=== PATIENT | female | born 1935 | race Caucasian/White ===

== ENCOUNTER → 2018-04-09 09:14 | Outpatient (CLI) | payer MEDICARE, OTHER, SELFPAY ==
[2018-04-09 10:49] LABS: Free T3, Triiodothyronine Free 4.26 pg/mL (2.77-5.27); Free T4, Direct Thyroxine 1.46 ng/dL (0.78-2.19)
[2018-04-09 11:02] LABS: Thyroid Stimulating Hormone 0.41 uIU/mL (0.47-4.68)
== END ==
PROVIDERS: PCP Internal Medicine; Visit Provider Internal Medicine Endocrinology, Diabetes & Metabolism
DX: E03.9 Hypothyroidism, unspecified (principal); E03.8 Other specified hypothyroidism
CPT/HCPCS: 36415; 84439; 84443; 84481

== ENCOUNTER 2018-06-02 20:40 | Emergency (ER) | payer MEDICARE, OTHER, SELFPAY ==
[2018-06-02 21:14] VITALS: BP 162/69; PULSE 69; RESP 14; TEMP 36.5; O2SAT 97
--- NOTE | 2018-06-02 21:19 | PC.NURSE ---
Pt states she feels well. Aware of busy ED and going home w/ daughter. Verbalized understanding to return if any difficulty or concerns.
== END 2018-06-02 21:20 | disposition left against medical advice (07) ==
LOC: ED 21:16
PROVIDERS: Family Provider Internal Medicine; PCP Internal Medicine
DX: R22.0 Localized swelling, mass and lump, head (principal)
CPT/HCPCS: 99281

== ENCOUNTER 2018-08-21 19:50 | Emergency (ER) | payer MEDICARE, OTHER, SELFPAY ==
[2018-08-21 19:56] VITALS: BP 202/80; PULSE 80; RESP 17; O2SAT 99
[2018-08-21] MEDS: SODIUM CHLORIDE 0.9% 1,000 ML 1000 ML IV (20:29)
[2018-08-21 20:47] LABS: Add Manual Diff / Slide Review NO; Eosinophils Percent Auto 2.9 % (2-4); Hematocrit 29.4 % (36-46); Hemoglobin 9.9 g/dL (12.0-16.0); Lymphocytes Percent Auto 19.6 % (25-40); Mean Corpuscular HGB Conc 33.7 % (30-36); Mean Corpuscular Hemoglobin 29.7 PG (26-34); Mean Corpuscular Volume 88.1 fL (80-100); Monocytes Percent Auto 6.5 % (3-14); Neutrophils Absolute Auto 5300 /uL (3000-5900); Platelet Count 238 X10^3/uL (150-400); Red Blood Cell Count 3.33 X10^6/uL (4.0-5.2); Red Cell Distribution Width 14.6 % (11.6-14.8); White Blood Cell Count 7.6 X10^3/uL (4.5-11.0)
--- NOTE | 2018-08-21 20:52 | DI.CT.S_ITS ---
PROCEDURE: CT HEAD/BRAIN WO CON INDICATIONS: dizzy, fall TECHNIQUE: Noncontrast 4.5 mm thick angled axial sections acquired from the foramen magnum to the vertex, with coronal and sagittal reformats. For radiation dose reduction, the following was used: automated exposure control, adjustment of mA and/or kV according to patient size. COMPARISON: None. FINDINGS: Image quality: Excellent. CSF spaces: Basal cisterns are patent. No extra-axial fluid collections. The ventricles are symmetric in size and shape. Brain: No intracranial bleeds or masses. There is cerebral volume loss for age, with resultant ventricular and sulcal prominence. There are periventricular and deep white matter chronic small vessel ischemic changes. There is intracranial internal carotid artery atherosclerosis. Skull and face: Calvarium and visualized facial bones appear intact, without suspicious lesions. Sinuses: Visualized sinuses and mastoids are clear. IMPRESSION: 1. No acute intracranial findings. 2. Mild findings likely associated with chronic microvascular ischemic change. Dictated by: Sharron Brown M.D. on 08/21/2018 at 21:30 Approved by: Sharron Brown M.D. on 08/21/2018 at 21:32
[2018-08-21 20:57] LABS: Alanine Aminotransferase 33 IU/L (9-52); Albumin 4.6 g/dL (3.5-5.0); Albumin Globulin Ratio 1.6 (1.0-2.8); Alkaline Phosphatase 102 U/L (38-126); Aspartate Aminotransferase 32 IU/L (14-36); BUN Creatinine Ratio 21.7 (6-22); Bilirubin Total 0.3 mg/dL (0.2-1.3); Blood Urea Nitrogen 26 mg/dL (7-17); Calcium 10.3 mg/dL (8.4-10.2); Carbon Dioxide 27 mmol/L (22-32); Chloride 100 mmol/L (98-107); Creatine Kinase 105 U/L (30-135); Estimated Glomerular Filt Rate 42.9 mL/min (>60); Globulin 2.9 g/dL (1.7-4.1); Glucose 168 mg/dL (80-110); HEMOLYSIS < 15 (0-50); Potassium 3.5 mmol/L (3.4-5.1); Sodium 139 mmol/L (137-145); Total Protein 7.5 g/dL (6.3-8.2)
[2018-08-21 21:09] LABS: Troponin I < 0.012 ng/mL (0.01-0.034)
[2018-08-21 21:12] LABS: CKMB % Relative Index 2.4 % (1.5-5.0); Creatine Kinase MB 2.56 ng/mL (<2.37)
[2018-08-21 21:25] LABS: Bacteria Urine None Seen
[2018-08-21 21:36] LABS: Culture Indicated Urine Cult Not Indicated; RBC Urine 5-10/HPF (0-5/HPF); WBC Urine 0-1/HPF (0-5/HPF)
[2018-08-21 21:37] VITALS: BP 202/80; PULSE 80; RESP 17; O2SAT 99
[2018-08-21 21:50] VITALS: BP 170/69; PULSE 80; RESP 15; O2SAT 98
[2018-08-21 22:41] VITALS: BP 179/79; BP 186/74; BP 186/77; PULSE 80; PULSE 84; PULSE 89
--- NOTE | 2018-08-21 22:42 | ED_ITS ---
HPI - Syncope General Chief Complaint: Syncope Stated Complaint: DIZZY SPELLS, FALL Time Seen by Provider: 08/21/18 20:00 Source: patient and family Mode of arrival: wheelchair Limitations: no limitations History of Present Illness HPI narrative: 83-year-old female nonsmoker with history of hypertension, presents with multiple family members in the chief complaint of an episode of vertigo earlier which required her to slide to the ground. She states this episode was unprovoked and is not made worse by change in position. She denies any other neurologic symptoms such as blurred vision or trouble with speech. She denies numbness, tingling or weakness of her extremities. She denies any change in her medications or diet. She states that she has had 4 brief episodes in the past few days and at the episodes last less than a minute. She complains of fullness in her ears Onset (ago): hour(s) Prodromal symptoms: vertigo Witnessed: no Injuries sustained associated with event: none Current symptoms: none Treatments prior to arrival: none Related Data Home Medications Medication Instructions Recorded Confirmed FERROUS SULFATE (IRON) 325 mg PO QDAY #0 10/20/16 calcitriol 0.5 mcg PO QDAY #0 10/20/16 calcium carbonate [Tums] 500 mg PO PRN PRN #0 10/20/16 cholecalciferol (vitamin D3) 1,000 unit PO QDAY #0 10/20/16 [Vitamin D3] levothyroxine [Synthroid] 0.075 mg PO QAM #0 10/20/16 liothyronine [Cytomel] 5 mcg PO QAM #0 02/09/18 Previous Rx's Medication Instructions Recorded amlodipine [Norvasc] 5 mg PO QDAY #30 tab 02/13/18 meclizine 25 mg PO BID-TID PRN #14 tab 08/21/18 Allergies Allergy/AdvReac Type Severity Reaction Status Date / Time Penicillins Allergy Severe BODY Verified 06/02/18 21:16 SWELLING bacitracin Allergy Unknown UNK Verified 06/02/18 21:16 Review of Systems Review of Systems All systems reviewed & are unremarkable except as noted in HPI and below Constitutional Denies chills, Denies fever(s), Denies lethargy and Denies weakness Eyes Denies change in vision, Denies eye discharge, Denies irritation and Denies loss of vision ENT Ears, Nose, Mouth, and Throat: Denies change in voice, Reports vertigo, Reports dizziness, Denies neck pain and Denies sore throat Comments: ear fullness Cardiovascular Denies chest pain, Denies irregular heart rhythm, Denies lightheadedness, Denies palpitations, Denies dyspnea, Denies dyspnea on exertion and Denies orthopnea Respiratory Denies cough, Denies dyspnea, Denies dyspnea on exertion and Denies wheezing Gastrointestinal Gastrointestinal: Denies abdominal pain, Denies change in bowel habits, Denies diarrhea, Denies nausea and Denies vomiting Genitourinary Denies hematuria, Denies flank pain, Denies urinary incontinence and Denies urinary urgency Musculoskeletal Denies neck pain Integumentary/Breasts Denies pruritus, Denies erythema, Denies rash and Denies wounds Neurologic Denies confusion, Reports vertigo, Reports dizziness, Denies loss of vision and Denies weakness Psychiatric Denies anxiety, Denies confusion, Denies depression, Denies homicidal ideation and Denies suicidal ideation Endocrine Denies palpitations Hematologic/Lymphatic Denies easy bruising Allergic/Immunologic Denies wheezing PFSH Social History Smoking Status: Never smoker Exam Narrative Exam Narrative: 83-year-old female resting, no active symptoms, at baseline distress Initial Vital Signs Initial Vital Signs: Vital Signs Pulse Rate 80 08/21/18 19:56 Respiratory Rate 17 08/21/18 19:56 Blood Pressure 202/80 H 08/21/18 19:56 Pulse Oximetry 99 08/21/18 19:56 Const General: cooperative, well developed and anxious Nutritional Appearance: well nourished Orientation: alert, awake, oriented x3 and not confused [facility] Head: normocephalic and atraumatic Ears: external ears normal and TM's normal bilaterally Nose: external nose normal and No nasal discharge Face and sinus: sinuses nontender, face symmetric, no sinus tenderness and No dry mucous membranes Mouth: oral mucosae normal and moist mucous membranes Teeth and gingiva: dentition normal Throat: tonsils normal and uvula midline Eyes General: appearance normal, both eyes and all related structures Eyelids: eyelids normal Conjunctivae: conjunctivae normal Sclera: sclerae normal Pupils: PERRL EOM: EOM intact bilaterally Chest Chest: normal inspection of the chest Cardio Rate: regular rate Rhythm: regular rhythm Heart Sounds: no click, no gallops, no murmurs and no rubs Pulses: normal peripheral pulses Back/Spine/Pelvis Back: No CVA tenderness Cervical Spine: cervical ROM normal and No pain with cervical ROM Thoracic/Lumbar Spine: thoracic and lumbar spine normal to inspection Skin General: no rashes or lesions noted, No jaundice and No petechiae Neuro General: alert, oriented x3, gait normal and no focal motor deficits Speech: speech normal Psych Appearance: well kempt Mental Status: mental status grossly normal Attitude: cooperative Thought Content: normal and suicidality Judgment: judgment good Scores NIH Stroke Scale Level of Conciousness: Alert, keenly responsive Ask month/age: Answers both questions correctly. Open/close eyes, close hand: Performs both tasks correctly Best gaze horizontal: Normal Visual juárez: No visual loss Facial palsy: Normal symetrical movement Left arm drift: No drift for full 10 sec Right arm drift: No drift for full 10 sec Left leg drift: No drift for full 10 sec Right leg drift: No drift for full 10 sec Limb ataxia: Absent Sensory on face/arms/legs: Normal, no sensory loss Best language: No aphasia, normal Dysarthria: Normal Extinction or inattention: No abnormality Total NIH Stroke scale score: 0 Course Orders Ordered: ED Orders 08/21/18 20:00 EKG-12 Lead Stat 08/21/18 20:05 Urine Microscopic Stat 08/21/18 20:25 B Type Natriuretic Peptide Stat Complete Blood Count AUTO DIFF Stat Comprehensive Metabolic Panel Stat Troponin & CK Cardiac Panel Stat 08/21/18 20:52 CT head/brain wo con Stat Discontinued Medications Sodium Chloride (Normal Saline 0.9%) 1,000 mls @ 1,000 mls/hr IV BOLUS ONE Stop: 08/21/18 21:28 Last Infusion: 08/21/18 22:32 Dose: 1,000 mls/hr Admin: 08/21/18 20:29 Dose: 1,000 mls/hr Vital Signs - 8 hr 08/21/18 19:56 08/21/18 21:37 08/21/18 21:50 Pulse Rate 80 80 80 Pulse Rate [Orthostatic Lying] Pulse Rate [Orthostatic Sitting] Pulse Rate [Orthostatic Standing] Respiratory Rate 17 17 15 Blood Pressure 202/80 H 202/80 H Blood Pressure [Left Arm] 170/69 H Blood Pressure [Orthostatic Lying] Blood Pressure [Orthostatic Sitting] Blood Pressure [Orthostatic Standing] Pulse Oximetry 99 99 98 08/21/18 22:41 Pulse Rate Pulse Rate [Orthostatic Lying] 84 Pulse Rate [Orthostatic Sitting] 89 Pulse Rate [Orthostatic Standing] 80 Respiratory Rate Blood Pressure Blood Pressure [Left Arm] Blood Pressure [Orthostatic Lying] 186/77 H Blood Pressure [Orthostatic Sitting] 186/74 H Blood Pressure [Orthostatic Standing] 179/79 H Pulse Oximetry MDM - Syncope Differential Diagnosis Likely syncope due to orthostatic hypotension, vasovagal syncope, complete atrioventricular block, subarachnoid hemorrhage, pulmonary embolism and dehydration Medical Records Attestation: I reviewed the patient's medical records. Lab Data Attestation: I reviewed the patient's lab results. Result diagrams: 08/21/18 20:25 08/21/18 20:25 Lab Results 08/21/18 08/21/18 08/21/18 Range/Units 20:05 20:25 20:25 WBC 7.6 (4.5-11.0) X10^3/uL RBC 3.33 L (4.0-5.2) X10^6/uL Hgb 9.9 L (12.0-16.0) g/dL Hct 29.4 L (36-46) % MCV 88.1 (80-100) fL MCH 29.7 (26-34) PG MCHC 33.7 (30-36) % RDW 14.6 (11.6-14.8) % Plt Count 238 (150-400) X10^3/uL Neut % (Auto) 70.0 (50-75) % Lymph % (Auto) 19.6 L (25-40) % [place] % (Auto) 6.5 (3-14) % Eos % (Auto) 2.9 (2-4) % Baso % (Auto) 1.0 (0-2) % Neut # (Auto) 5300 (1998-3064) /uL Sodium 139 (137-145) mmol/L Potassium 3.5 (3.4-5.1) mmol/L Chloride 100 (98-107) mmol/L Carbon Dioxide 27 (22-32) mmol/L BUN 26 H (7-17) mg/dL Creatinine 1.20 H (0.52-1.04) mg/dL Estimated GFR 42.9 L (>60) mL/min BUN/Creatinine Ratio 21.7 (6-22) Glucose 168 H (80-110) mg/dL Calcium 10.3 H (8.4-10.2) mg/dL Total Bilirubin 0.3 (0.2-1.3) mg/dL AST 32 (14-36) IU/L ALT 33 (9-52) IU/L Alkaline Phosphatase 102 (38-126) U/L Total Creatine Kinase 105 (30-135) U/L CK-MB (CK-2) 2.56 H (<2.37) ng/mL CK-MB (CK-2) Rel Index 2.4 (1.5-5.0) % Troponin I < 0.012 (0.01-0.034) ng/mL B-Natriuretic Peptide 110.0 H (<100) Total Protein 7.5 (6.3-8.2) g/dL Albumin 4.6 (3.5-5.0) g/dL Globulin 2.9 (1.7-4.1) g/dL Albumin/Globulin Ratio 1.6 (1.0-2.8) Urine RBC 5-10/hpf H (0-5/HPF) Urine WBC 0-1/hpf (0-5/HPF) Urine Bacteria None seen (None) Ur Culture Indicated? Cult not indicated Micro UA Comment Not Reportable Urine Dip Bedside Urine Glucose Negative Bedside Urine Bilirubin - Negative Bedside Urine Ketone - Negative Urine Specific [place] 1.015 Bedside Urine Occult Blood + Bedside Urine pH 6.0 Bedside Urine Protein - Negative Bedside Urine Urobilinogen - Negative Bedside Urine Nitrite - Negative Bedside Urine Leukocytes - Negative Esterase Imaging Data CT scan - head: Radiologist's impression: [address] [address] [address] Scan Report Signed Patient: Mica Manuel FMR#: [id number] : 5Acct:[id number] Age/Sex: 83 / FDate of Service: 08/21/18 Loc: ED Accession Number: [id number] Procedure: CT head/brain wo con Ordering Provider: Quinn Hill D.O. PROCEDURE: CT HEAD/BRAIN WO CON INDICATIONS: dizzy, fall TECHNIQUE: Noncontrast 4.5 mm thick angled axial sections acquired from the foramen magnum to the vertex, with coronal and sagittal reformats. For radiation dose reduction, the following was used: automated exposure control, adjustment of mA and/or kV according to patient size. COMPARISON: None. FINDINGS: Image quality: Excellent. CSF spaces: Basal cisterns are patent. No extra-axial fluid collections. The ventricles are symmetric in size and shape. Brain: No intracranial bleeds or masses. There is cerebral volume loss for age , with resultant ventricular and sulcal prominence. There are periventricular and deep white matter chronic small vessel ischemic changes. There is intracranial internal carotid artery atherosclerosis. Skull and face: Calvarium and visualized facial bones appear intact, without suspicious lesions. Sinuses: Visualized sinuses and mastoids are clear. IMPRESSION: 1. No acute intracranial findings. 2. Mild findings likely associated with chronic microvascular ischemic change. Dictated by: Sharron Brown M.D. on 08/21/2018 at 21:30 Approved by: Sharron Brown M.D. on 08/21/2018 at 21:32 ECG Data Attestation: I personally reviewed and interpreted this ECG as follows: Prior ECG tracings: not available for review Interpretation: NSR at 84bpm. No ectopy or signs of ischemia such as ST segment elevation/depression or T wave inversions MDM Narrative Medical decision making narrative: Patient complains of brief episodes of intense sensation that the room is spinning in the absence of other neurologic findings. She does complain of fullness in her ears and a history of vertigo, suggesting this is similar. She denies any recent other illness or injury. Patient was asymptomatic for duration of her stay here. Stroke considered but thought less likely given lack of symptoms, other neurologic complaints, normal NIH stroke scale, normal CT. Electrolyte abnormality considered initially but ruled out with normal labs. Coronary disease considered but lack of more typical ischemic symptoms are absent. EKG is nonischemic. Cardiac enzymes normal. Hypertensive emergency considered but patient is asymptomatic for duration of her visit despite moderately elevated blood pressure. Discharge Plan Departure Patient Disposition: Home Clinical Impression: Vertigo, Hypertension Discharge Date/Time: 08/21/18 23:00 Interventions: ED Discharge Assessment Last Done: 08/21/18 23:00 Instructions: DI for Vertigo Activity Restrictions/Additional Instructions: *You have been diagnosed with [ vertigo, hypertension ] *What to do: *Take medications as directed: Your prescription has been electronically transmitted to the [facility] at your request *Follow up with your primary care provider in 2-3 days, call for an appointment. Let them know you were seen in the Emergency Department and that we ask that you be seen in follow up *Return to ER if you should have any new, worsening or concerning symptoms Prescriptions: New meclizine 25 mg tablet 25 mg PO BID-TID PRN (Reason: dizziness) Qty: 14 RF: 0 No Action levothyroxine [Synthroid] 75 MCG tablet 0.075 mg PO QAM Qty: 0 RF: 0 calcitriol 0.5 MCG capsule 0.5 mcg PO QDAY Qty: 0 RF: 0 calcium carbonate [Tums] 500 MG tablet,chewable 500 mg PO PRN PRNQty: 0 RF: 0 cholecalciferol (vitamin D3) [Vitamin D3] 1,000 UNIT tablet 1,000 unit PO QDAY Qty: 0 RF: 0 FERROUS SULFATE (IRON) 325 mg PO QDAY Qty: 0 RF: 0 liothyronine [Cytomel] 5 MCG tablet 5 mcg PO QAM Qty: 0 RF: 0 amlodipine [Norvasc] 5 MG tablet 5 mg PO QDAY Qty: 30 RF: 0 Referrals: Kale Hernandez MD [Physician] - Kenji Schwarz MD [Primary Care Provider] - Lore Lynn DO [Physician] -
== END 2018-08-21 23:00 | disposition home or self-care (01) ==
PROVIDERS: Emergency Provider Emergency Medicine; Family Provider Internal Medicine; PCP Internal Medicine
DX: R42 Dizziness and giddiness (principal); I10 Essential (primary) hypertension
CPT/HCPCS: 36591; 70450; 80053; 81003; 81015; 82550; 82553; 83880; 84484; 85025; 93005; 93010; 96360; 96361; 99283; 99285

== ENCOUNTER 2018-09-06 11:46 | Outpatient (RCR) | payer MEDICARE, OTHER, SELFPAY ==
--- NOTE | 2018-09-06 12:45 | PT.OPPOC ---
Current Diagnoses Benign paroxysmal vertigo, right ear (09/06/18) Other peripheral vertigo, bilateral (09/06/18) Other abnormalities of gait and mobility (09/06/18) Provider Visit Care Team Role Provider Type Kenji Schwarz MD Family Provider Physician Primary Care Provider Specialty: Internal Medicine Address: [address] [place] [id number] Email: Kale Hernandez MD Attending Provider Physician Specialty: Ear, Nose, Throat Address: [address] [place] [address], [id number] Email: Plan Of Care PT-OP-T Assessment and Plan Start: 09/07/18 11:19 Freq: Status: Active Protocol: Document 09/06/18 12:00 DCW (Rec: 09/07/18 11:40 DCW [id number]) Physical Therapy Assessment Rehab Potential Rehabilitation Potential Excellent Evaluation Complexity Number of Personal Factors/Comorbidities 0 Number of Body Systems Impaired 1-2 Clinical Presentation at Evaluation Stable Impairments Impairments Balance Functional Activities Vestibular Goals Three Impairment Tandem Stance Mcc Goal (LTG) Pt to balance in tandem stance for 30 seconds bilaterally LTG Duration 11/06/18 Two Impairment Single Leg Stance Short Term Goal (STG) Pt to display SLS of 15 seconds bilaterally STG Duration 10/06/18 One Impairment History of falls with dizziness [employer] Person Goal (LTG) Pt to report no falls over a span of two months LTG Duration 11/06/18 Assessment Summary Assessment Pt presents with what appears to be a reasonable history of right-sided BPPV, however is currently not experiencing any symptoms, and her vestibular examination is entirely negative. Pt does display mild decrease in overall balance, however is doing well enough that she does not likely need focused, regular balance training. Pt was given a general balance HEP, with recommendations on how to increase difficulty if she begins to improve. Pt was very agreeable to this idea, but was interested in returning to therapy for a reassessment within the next month to determine if she is improving, and participate in skilled balance therapy if she is unable to improve on her own. Physical Therapy Plan Frequency and Duration Frequency of Treatment Every Other Week Duration of Treatment 2 months Plan of Care Start Date 09/06/18 Plan of Care End Date 11/07/18 Therapeutic Interventions Therapeutic Interventions Balance Training Canalithic Repositioning Neuromuscular Re-education Therapeutic Exercises Next Visit Focus/Plan Next Note Type Treatment Note Next Visit Plan Balance testing, balance training, positional testing as indicated Plan of Care Dates Plan of Care Start Date 09/06/18 Plan of Care End Date 11/07/18 Please Sign and Return: I have reviewed this Plan of Care and certify that the skilled therapy services above are required to meet the patient?s needs. Physician Signature Date Printed Name and Credentials Clinical Instructor Signature Printed Name and Credentials
--- NOTE | 2018-09-06 12:45 | PT.OIE ---
Current Diagnoses Benign paroxysmal vertigo, right ear (09/06/18) Other peripheral vertigo, bilateral (09/06/18) Other abnormalities of gait and mobility (09/06/18) Provider Visit Care Team Role Provider Type Kenji Schwarz MD Family Provider Physician Primary Care Provider Specialty: Internal Medicine Address: [address] [place] [address] Email: Kale Hernandez MD Attending Provider Physician Specialty: Ear, Nose, Throat Address: [address] [place] [address], [facility] Email: Physical Therapy Initial Evaluation PT-OP-A Visit Information Start: 09/07/18 11:19 Freq: Status: Active Protocol: Document 09/06/18 12:00 DCW (Rec: 09/07/18 11:40 DCW [id number]) Out-Patient Physical Therapy Visit Information Visit Information Visit Type Initial Evaluation Visit Start Time 12:00 Visit Stop Time 12:45 Total Visit Minutes 45 Visit Number 1 Number of MONITORING AND EVALUATION ADVISOR Visits 0 Evaluation Information Evaluation Date 09/06/18 PT-OP-B Current Condition Start: 09/07/18 11:19 Freq: Status: Active Protocol: Document 09/06/18 12:00 DCW (Rec: 09/07/18 11:40 DCW [id number]) Current Condition History of Current Condition Onset Date 10 days Current Complaints Positional dizziness, imbalance History of Current Condition Pt is an 83 year old female complaining of a 10 day history of motion-induced vertigo. Pt reports initial episode occurred on August 27, when she got rolled of bed, became dizzy, and fell. Pt was later standing in her kitchen, and suddenly got dizzy and went right down on my bum due to the room turning, although she is unable to remember if she had happened to be changing head positions at the time. Pt's son recommended she go to the ER, and she had a wide variety of testing performed, and the results were all boring. Pt reports she was told she probably had ear crystals, and when she saw Dr Hernandez and [facility], he was in agreement with this assessment , and referred her to vestibular therapy. Pt reports her episodes only occurred for a span of one week, and she has no longer been having any symptoms, so she is unsure what therapy can do for her at this time. Pt denies recent hearing changes, tinnitus, diplopia, dysarthria, discoordination, or decreased mentation/consciousness. Pt reports symptoms are waxing/ waning in nature. Pt denies hx of hyperlipidemia, diabetes, arrhythmia, head trauma, seizure, migraines, back/neck problems, CVA, anxiety/panic disorders, depression, or excessive smoking or drinking. Treatment Goals Patient/Caregiver Goals I'd like to make sure I don't have any more falls due to dizziness. PT-OP-C Subjective Start: 09/07/18 11:19 Freq: Status: Active Protocol: Document 09/06/18 12:00 DCW (Rec: 09/07/18 11:40 DCW [id number]) OP-PT Subjective Patient Comments Patient Comments Pt reports she is not currently experiencing any symptoms Patient Reported Progress Improving Patient Questionnaires ABC- Activity Specific Balance Confidence Scale ABC Score 96.56% ABC Functional Impairment 1 to <20% Impaired (Score 81- 99) Dizziness Handicap Inventory DHI Score 4% DHI Functional Impairment 1 to 19% Impaired (Score 1-19) OP-PT Pain Assessment Pain Assessment Grid Paper Pain Assessment Grid Completed No PT-OP-D Balance Start: 09/07/18 11:19 Freq: Status: Active Protocol: Document 09/06/18 12:00 DCW (Rec: 09/07/18 11:40 DCW [id number]) OP-PT Balance Assessment Sitting Balance Static Sitting Balance Ability Normal Dynamic Sitting Balance Ability Normal Standing Balance Static Standing Balance Ability Normal Dynamic Standing Balance Ability Good Balance Tests CTSIB CTSIB Position 1 Slight Sway CTSIB Position 2 Mild Sway CTSIB Position 3 Mild Sway CTSIB Position 4 Mild Sway CTSIB Position 5 Moderate Sway CTSIB Position 6 Fall Reaction Single Limb Standing Single Limb- Right 11 seconds Single Limb- Left 4 seconds Tandem Tandem Standing 6 seconds R front, 4 seconds L front Mary Fall Scale Copyright Permission Mary NEGRETE, Mary RM, Valery SJ. Development of a scale to identify the fall- prone patient. Can J Aging 1989;8;366-7. Alexandra Hernandez (2009). Preventing patient falls. (2nd ed). Reagan: Edward. PT-OP-O Vestibular Start: 09/07/18 11:19 Freq: Status: Active Protocol: Document 09/06/18 12:00 DCW (Rec: 09/07/18 11:40 [facility] [id number]) Vestibular Assessment Screening Tests Vestibular Artery Screen Negative Sharp-Hiral Test Negative Auditory Tests Moreno Test Negative Rinne Test Negative Air Conduction Results Equal Visual Testing Smooth Pursuits Horizontal Negative Smooth Pursuits Vertical Negative Saccades Horizontal Negative Gaze Evoked Nystagmus With Fixation Negative Gaze Evoked Nystagmus Without Fixation Negative Heave Test Positive Bilateral Thrust Head Positive Bilateral Positional Testing Tl-Hallpike Negative Left Negative Right Rolling Test Negative Left Negative Right Sidelying Test Negative Left Negative Right Comments Vestibular Comments Mildly positive bilateral thrust and heave tests PT-OP-Q Treatments Start: 09/07/18 11:19 Freq: Status: Active Protocol: Document 09/06/18 12:00 DCW (Rec: 09/07/18 11:40 [facility] [id number]) Neuro Re-Education Treatment Balance Activities Heel-toe ambulation Details Heel-toe gait Comments Forward/backward Narrow ESTELA Details Narrow ESTELA EO/EC Tandem Stance Details Tandem stance with and without head turns Single Leg Stance Details SLS at counter PT-OP-T Assessment and Plan Start: 09/07/18 11:19 Freq: Status: Active Protocol: Document 09/06/18 12:00 DCW (Rec: 09/07/18 11:40 [facility] [id number]) Physical Therapy Assessment Rehab Potential Rehabilitation Potential Excellent Evaluation Complexity Number of Personal Factors/Comorbidities 0 Number of Body Systems Impaired 1-2 Clinical Presentation at Evaluation Stable Impairments Impairments Balance Functional Activities Vestibular Goals Three Impairment Tandem Stance Manufacturing Technician Goal (LTG) Pt to balance in tandem stance for 30 seconds bilaterally LTG Duration 11/06/18 Two Impairment Single Leg Stance Short Term Goal (STG) Pt to display SLS of 15 seconds bilaterally STG Duration 10/06/18 One Impairment History of falls with dizziness Senior Living Goal (LTG) Pt to report no falls over a span of two months LTG Duration 11/06/18 Assessment Summary Assessment Pt presents with what appears to be a reasonable history of right-sided BPPV, however is currently not experiencing any symptoms, and her vestibular examination is entirely negative. Pt does display mild decrease in overall balance, however is doing well enough that she does not likely need focused, regular balance training. Pt was given a general balance HEP, with recommendations on how to increase difficulty if she begins to improve. Pt was very agreeable to this idea, but was interested in returning to therapy for a reassessment within the next month to determine if she is improving, and participate in skilled balance therapy if she is unable to improve on her own. Physical Therapy Plan Frequency and Duration Frequency of Treatment Every Other Week Duration of Treatment 2 months Plan of Care Start Date 09/06/18 Plan of Care End Date 11/07/18 Therapeutic Interventions Therapeutic Interventions Balance Training Canalithic Repositioning Neuromuscular Re-education Therapeutic Exercises Next Visit Focus/Plan Next Note Type Treatment Note Next Visit Plan Balance testing, balance training, postional testing as indicated
--- NOTE | 2018-11-28 11:17 | PT.OPDS ---
Current Diagnoses Benign paroxysmal vertigo, right ear (09/06/18) Other peripheral vertigo, bilateral (09/06/18) Other abnormalities of gait and mobility (09/06/18) Provider Visit Care Team Role Provider Type Kenji Schwarz MD Family Provider Physician Primary Care Provider Specialty: Internal Medicine Address: [address] [place] [address] Email: Kale Hernandez MD Attending Provider Physician Specialty: Ear, Nose, Throat Address: [address] [place] [address] Email: Visit Number Visit Number 1 Discharge Summary PT-OP-B Current Condition Start: 09/07/18 11:19 Freq: Status: Active Protocol: Document 09/06/18 12:00 DCW (Rec: 09/07/18 11:40 DCW [id number]) Current Condition History of Current Condition Onset Date 10 days Current Complaints Positional dizziness, imbalance History of Current Condition Pt is an 83 year old female complaining of a 10 day history of motion-induced vertigo. Pt reports initial episode occurred on August 27, when she got rolled of bed, became dizzy, and fell. Pt was later standing in her kitchen, and suddenly got dizzy and went right down on my bum due to the room turning, although she is unable to remember if she had happened to be changing head positions at the time. Pt's son recommended she go to the ER, and she had a wide variety of testing performed, and the results were all boring. Pt reports she was told she probably had ear crystals, and when she saw Dr Hernandez and [facility], he was in agreement with this assessment , and referred her to vestibular therapy. Pt reports her episodes only occurred for a span of one week, and she has no longer been having any symptoms, so she is unsure what therapy can do for her at this time. Pt denies recent hearing changes, tinnitus, diplopia, dysarthria, discoordination, or decreased mentation/consciousness. Pt reports symptoms are waxing/ waning in nature. Pt denies hx of hyperlipidemia, diabetes, arrhythmia, head trauma, seizure, migraines, back/neck problems, CVA, anxiety/panic disorders, depression, or excessive smoking or drinking. Treatment Goals Patient/Caregiver Goals I'd like to make sure I don't have any more falls due to dizziness. PT-OP-C Subjective Start: 09/07/18 11:19 Freq: Status: Active Protocol: Document 09/06/18 12:00 DCW (Rec: 09/07/18 11:40 DCW [id number]) OP-PT Subjective Patient Comments Patient Comments Pt reports she is not currently experiencing any symptoms Patient Reported Progress Improving Patient Questionnaires ABC- Activity Specific Balance Confidence Scale ABC Score 96.56% ABC Functional Impairment 1 to <20% Impaired (Score 81- 99) Dizziness Handicap Inventory DHI Score 4% DHI Functional Impairment 1 to 19% Impaired (Score 1-19) OP-PT Pain Assessment Pain Assessment Grid Paper Pain Assessment Grid Completed No PT-OP-D Balance Start: 09/07/18 11:19 Freq: Status: Active Protocol: Document 09/06/18 12:00 DCW (Rec: 09/07/18 11:40 DCW [id number]) OP-PT Balance Assessment Sitting Balance Static Sitting Balance Ability Normal Dynamic Sitting Balance Ability Normal Standing Balance Static Standing Balance Ability Normal Dynamic Standing Balance Ability Good Balance Tests CTSIB CTSIB Position 1 Slight Sway CTSIB Position 2 Mild Sway CTSIB Position 3 Mild Sway CTSIB Position 4 Mild Sway CTSIB Position 5 Moderate Sway CTSIB Position 6 Fall Reaction Single Limb Standing Single Limb- Right 11 seconds Single Limb- Left 4 seconds Tandem Tandem Standing 6 seconds R front, 4 seconds L front Hernandez Fall Scale Copyright Permission Mary JM, Mary RM, Valery SJ. Development of a scale to identify the fall- prone patient. Can J Aging 1989;8;366-7. Alexandra Hernandez (2009). Preventing patient falls. (2nd ed). [place]: Edward. PT-OP-O Vestibular Start: 09/07/18 11:19 Freq: Status: Active Protocol: Document 09/06/18 12:00 DCW (Rec: 09/07/18 11:40 DCW [id number]) Vestibular Assessment Screening Tests Vestibular Artery Screen Negative Sharp-Hiral Test Negative Auditory Tests Moreno Test Negative Rinne Test Negative Air Conduction Results Equal Visual Testing Smooth Pursuits Horizontal Negative Smooth Pursuits Vertical Negative Saccades Horizontal Negative Gaze Evoked Nystagmus With Fixation Negative Gaze Evoked Nystagmus Without Fixation Negative Heave Test Positive Bilateral Thrust Head Positive Bilateral Positional Testing [place]-Hallpike Negative Left Negative Right Rolling Test Negative Left Negative Right Sidelying Test Negative Left Negative Right Comments Vestibular Comments Mildly positive bilateral thrust and heave tests PT-OP-T Assessment and Plan Start: 09/07/18 11:19 Freq: Status: Active Protocol: Document 11/28/18 11:13 DCW (Rec: 11/28/18 11:16 DCW [id number]) Physical Therapy Assessment Assessment Summary Assessment At the time of her initial evaluation, pt was not having any symptoms, despite a history suggestive of BPPV. At that time, pt was instructed to return within one month for reassessment if symptoms returned. Pt has now not been seen in nearly three months, and will require a new referral in order to return to skilled therapy. Physical Therapy Plan Discharge Physical Therapy Discharge Reasons No Longer Attending PT Next Visit Focus/Plan Next Note Type Discharge Summary
== END 2018-11-28 14:38 ==
LOC: PHYS 11:46
PROVIDERS: Family Provider Internal Medicine; PCP Internal Medicine; Visit Provider Otolaryngology
DX: H81.11 Benign paroxysmal vertigo, right ear (principal)
CPT/HCPCS: 97112; 97161

== ENCOUNTER → 2018-10-27 09:57 | Outpatient (CLI) | payer MEDICARE, OTHER, SELFPAY ==
[2018-10-27 11:47] LABS: Free T3, Triiodothyronine Free 2.39 pg/mL (2.77-5.27); Free T4, Direct Thyroxine 0.79 ng/dL (0.78-2.19)
[2018-10-27 12:00] LABS: Thyroid Stimulating Hormone 6.33 uIU/mL (0.47-4.68)
== END ==
PROVIDERS: PCP Internal Medicine; Visit Provider Internal Medicine Endocrinology, Diabetes & Metabolism
DX: E03.9 Hypothyroidism, unspecified (principal)
CPT/HCPCS: 36415; 84439; 84443; 84481

== ENCOUNTER → 2019-04-12 13:15 | Outpatient (CLI) | payer MEDICARE, OTHER, SELFPAY ==
[2019-04-12 14:58] LABS: Alanine Aminotransferase 31 IU/L (9-52); Albumin 4.3 g/dL (3.5-5.0); Albumin Globulin Ratio 1.6 (1.0-2.8); Alkaline Phosphatase 76 U/L (38-126); Aspartate Aminotransferase 31 IU/L (14-36); BUN Creatinine Ratio 17.3 (6-22); Bilirubin Total 0.5 mg/dL (0.2-1.3); Blood Urea Nitrogen 26 mg/dL (7-17); Calcium 11.8 mg/dL (8.4-10.2); Carbon Dioxide 30 mmol/L (22-32); Chloride 97 mmol/L (98-107); Estimated Glomerular Filt Rate 33.1 mL/min (>60); Globulin 2.7 g/dL (1.7-4.1); Glucose 85 mg/dL (80-110); HEMOLYSIS < 15 (0-50); Potassium 3.6 mmol/L (3.4-5.1); Sodium 137 mmol/L (137-145)
[2019-04-12 15:16] LABS: Free T3, Triiodothyronine Free 3.66 pg/mL (2.77-5.27); Free T4, Direct Thyroxine 1.09 ng/dL (0.78-2.19)
[2019-04-12 15:29] LABS: Thyroid Stimulating Hormone 0.28 uIU/mL (0.47-4.68)
== END ==
PROVIDERS: PCP Internal Medicine; Visit Provider Internal Medicine Endocrinology, Diabetes & Metabolism
DX: E20.8 Other hypoparathyroidism (principal)
CPT/HCPCS: 36415; 80053; 84439; 84443; 84481

== ENCOUNTER → 2019-07-12 09:15 | Outpatient (CLI) | payer MEDICARE, OTHER, SELFPAY ==
[2019-07-12 11:00] LABS: Alanine Aminotransferase 21 IU/L (9-52); Albumin 4.4 g/dL (3.5-5.0); Albumin Globulin Ratio 1.4 (1.0-2.8); Alkaline Phosphatase 83 U/L (38-126); Aspartate Aminotransferase 37 IU/L (14-36); BUN Creatinine Ratio 15.4 (6-22); Bilirubin Total 0.5 mg/dL (0.2-1.3); Blood Urea Nitrogen 20 mg/dL (7-17); Carbon Dioxide 28 mmol/L (22-32); Chloride 100 mmol/L (98-107); Globulin 3.1 g/dL (1.7-4.1); Glucose 89 mg/dL (80-110); HEMOLYSIS < 15 (0-50); Potassium 4.3 mmol/L (3.4-5.1); Sodium 140 mmol/L (137-145); Total Protein 7.5 g/dL (6.3-8.2)
[2019-07-12 11:13] LABS: Free T3, Triiodothyronine Free 3.43 pg/mL (2.77-5.27)
[2019-07-12 11:27] LABS: Thyroid Stimulating Hormone 3.09 uIU/mL (0.47-4.68)
== END ==
PROVIDERS: PCP Internal Medicine; Visit Provider Internal Medicine Endocrinology, Diabetes & Metabolism
DX: E20.8 Other hypoparathyroidism (principal)
CPT/HCPCS: 36415; 80053; 84439; 84443; 84481

== ENCOUNTER → 2019-09-23 11:27 | Outpatient (CLI) | payer MEDICARE, OTHER, SELFPAY ==
[2019-09-23 12:26] LABS: Add Manual Diff / Slide Review NO; Basophils Absolute Auto 100 /uL (0-100); Basophils Percent Auto 0.8 % (0-2); Eosinophils Absolute Auto 100 /uL (0-450); Eosinophils Percent Auto 1.9 % (2-4); Hematocrit 31.8 % (36-46); Lymphocytes Absolute Auto 1500 /uL (1100-4500); Lymphocytes Percent Auto 19.6 % (25-40); Mean Corpuscular HGB Conc 34.6 % (30-36); Mean Corpuscular Hemoglobin 30.1 PG (26-34); Mean Corpuscular Volume 87.1 fL (80-100); Monocytes Absolute Auto 600 /uL (0-900); Monocytes Percent Auto 8.5 % (3-14); Neutrophils Absolute Auto 5200 /uL (1500-7000); Neutrophils Percent Auto 69.2 % (50-75); Platelet Count 251 X10^3/uL (150-400); Red Blood Cell Count 3.66 X10^6/uL (4.0-5.2); Red Cell Distribution Width 13.5 % (11.6-14.8); White Blood Cell Count 7.5 X10^3/uL (4.5-11.0)
[2019-09-23 12:37] LABS: Alanine Aminotransferase 22 IU/L (<35); Albumin 4.8 g/dL (3.5-5.0); Albumin Globulin Ratio 1.6 (1.0-2.8); Alkaline Phosphatase 82 U/L (38-126); Aspartate Aminotransferase 33 IU/L (14-36); BUN Creatinine Ratio 18.5 (6-22); Bilirubin Total 0.5 mg/dL (0.2-1.3); Blood Urea Nitrogen 24 mg/dL (7-17); Calcium 9.8 mg/dL (8.4-10.2); Carbon Dioxide 28 mmol/L (22-32); Chloride 101 mmol/L (98-107); Glucose 107 mg/dL (80-110); HEMOLYSIS < 15 (0-50); Potassium 4.1 mmol/L (3.4-5.1); Sodium 140 mmol/L (137-145); Total Protein 7.8 g/dL (6.3-8.2)
[2019-09-23 12:39] LABS: Aspartate Aminotransferase 35 IU/L (14-36); Cholesterol 242 mg/dL (140-199); HDL Cholesterol 46 mg/dL (40-60); LDL Cholesterol Calculated 162 mg/dL (<100); Triglycerides 172 mg/dL (35-150)
[2019-09-23 12:53] LABS: Free T4, Direct Thyroxine 0.89 ng/dL (0.78-2.19)
== END ==
PROVIDERS: Family Provider Internal Medicine; PCP Internal Medicine; Visit Provider Internal Medicine Endocrinology, Diabetes & Metabolism
DX: E78.2 Mixed hyperlipidemia (principal); I10 Essential (primary) hypertension; D64.9 Anemia, unspecified; E20.8 Other hypoparathyroidism; E03.8 Other specified hypothyroidism
CPT/HCPCS: 36415; 80053; 80061; 84439; 84443; 84450; 84481; 85025

== ENCOUNTER → 2020-02-28 16:16 | Outpatient (CLI) | payer MEDICARE, OTHER, SELFPAY ==
[2020-02-28 17:44] LABS: Alanine Aminotransferase 25 IU/L (<35); Albumin 4.5 g/dL (3.5-5.0); Albumin Globulin Ratio 1.5 (1.0-2.8); Alkaline Phosphatase 109 U/L (38-126); Aspartate Aminotransferase 34 IU/L (14-36); BUN Creatinine Ratio 19.5 (6-22); Bilirubin Total 0.3 mg/dL (0.2-1.3); Blood Urea Nitrogen 22 mg/dL (7-17); Calcium 9.3 mg/dL (8.4-10.2); Carbon Dioxide 30 mmol/L (22-32); Chloride 100 mmol/L (98-107); Estimated Glomerular Filt Rate 45.8 mL/min (>60); Glucose 116 mg/dL (80-110); HEMOLYSIS < 15 (0-50); Potassium 4.3 mmol/L (3.4-5.1); Sodium 137 mmol/L (137-145); Total Protein 7.5 g/dL (6.3-8.2)
[2020-02-28 17:59] LABS: Vitamin D 25 Hydroxy (D3) 31.3 ng/mL (30.0-100.0)
[2020-02-28 18:17] LABS: Free T4, Direct Thyroxine 1.01 ng/dL (0.78-2.19)
[2020-02-28 18:27] LABS: Thyroid Stimulating Hormone 0.98 uIU/mL (0.47-4.68)
[2020-02-29 08:40] LABS: Parathyroid Hormone Int 12 pg/mL (15-65)
== END ==
PROVIDERS: Family Provider Internal Medicine; PCP Internal Medicine; Referring Provider Internal Medicine Endocrinology, Diabetes & Metabolism; Visit Provider Internal Medicine Endocrinology, Diabetes & Metabolism
DX: E03.8 Other specified hypothyroidism (principal); E20.8 Other hypoparathyroidism
CPT/HCPCS: 36415; 80053; 82306; 83970; 84439; 84443; 84481

== ENCOUNTER → 2020-11-13 10:56 | Outpatient (CLI) | payer MEDICARE, OTHER, SELFPAY ==
[2020-11-13 12:15] LABS: Alanine Aminotransferase 36 IU/L (<35); Albumin 4.3 g/dL (3.5-5.0); Albumin Globulin Ratio 1.7 (1.0-2.8); Alkaline Phosphatase 75 U/L (38-126); Aspartate Aminotransferase 40 IU/L (14-36); BUN Creatinine Ratio 18.6 (6-22); Bilirubin Total 0.4 mg/dL (0.2-1.3); Blood Urea Nitrogen 22 mg/dL (7-17); Calcium 9.1 mg/dL (8.4-10.2); Carbon Dioxide 33 mmol/L (22-32); Chloride 100 mmol/L (98-107); Estimated Glomerular Filt Rate 43.5 mL/min (>60); Globulin 2.5 g/dL (1.7-4.1); Glucose 75 mg/dL (80-110); HEMOLYSIS < 15 (0-50); Potassium 3.9 mmol/L (3.4-5.1); Sodium 136 mmol/L (137-145); Total Protein 6.8 g/dL (6.3-8.2)
[2020-11-13 12:31] LABS: Vitamin D 25 Hydroxy (D3) 39.8 ng/mL (30.0-100.0)
[2020-11-13 12:33] LABS: Free T3, Triiodothyronine Free 2.75 pg/mL (2.77-5.27); Free T4, Direct Thyroxine 1.02 ng/dL (0.78-2.19)
[2020-11-13 12:47] LABS: Thyroid Stimulating Hormone 0.912 uIU/mL (0.47-4.68)
[2020-11-14 07:36] LABS: Parathyroid Hormone Int 10 pg/mL (15-65)
== END ==
PROVIDERS: Family Provider Internal Medicine; PCP Internal Medicine; Referring Provider Internal Medicine Endocrinology, Diabetes & Metabolism; Visit Provider Internal Medicine Endocrinology, Diabetes & Metabolism
DX: E03.8 Other specified hypothyroidism (principal); E20.8 Other hypoparathyroidism
CPT/HCPCS: 36415; 80053; 82306; 83970; 84439; 84443; 84481

== ENCOUNTER → 2021-12-03 12:54 | Outpatient (CLI) | payer MEDICARE, OTHER, SELFPAY ==
[2021-12-03 14:06] LABS: Alanine Aminotransferase 30 IU/L (<35); Albumin 4.5 g/dL (3.5-5.0); Albumin Globulin Ratio 1.5 (1.0-2.8); Alkaline Phosphatase 71 U/L (38-126); Aspartate Aminotransferase 45 IU/L (14-36); BUN Creatinine Ratio 14.8 (6-22); Bilirubin Total 0.4 mg/dL (0.2-1.3); Blood Urea Nitrogen 18 mg/dL (7-17); Calcium 9.4 mg/dL (8.4-10.2); Carbon Dioxide 29 mmol/L (22-32); Chloride 101 mmol/L (98-107); Estimated Glomerular Filt Rate 41.8 mL/min (>60); Glucose 93 mg/dL (80-110); HEMOLYSIS < 15 (0-50); Sodium 137 mmol/L (137-145); Total Protein 7.5 g/dL (6.3-8.2)
[2021-12-03 14:52] LABS: Free T3, Triiodothyronine Free 3.27 pg/mL (2.77-5.27); Free T4, Direct Thyroxine 1.01 ng/dL (0.78-2.19)
[2021-12-03 15:02] LABS: Thyroid Stimulating Hormone 1.62 uIU/mL (0.47-4.68)
[2021-12-03 15:23] LABS: Vitamin D 25 Hydroxy (D3) 49.6 ng/mL (30.0-100.0)
[2021-12-04 08:52] LABS: Parathyroid Hormone Int 11 pg/mL (15-65)
== END ==
PROVIDERS: Family Provider Internal Medicine; PCP Internal Medicine; Referring Provider Internal Medicine Endocrinology, Diabetes & Metabolism; Visit Provider Internal Medicine Endocrinology, Diabetes & Metabolism
DX: E03.8 Other specified hypothyroidism (principal); E20.8 Other hypoparathyroidism
CPT/HCPCS: 36415; 80053; 82306; 83970; 84439; 84443; 84481

== ENCOUNTER → 2022-04-28 16:20 | Outpatient (CLI) | payer MEDICARE, OTHER, SELFPAY ==
[2022-04-28 16:50] LABS: Hematocrit 32.7 % (36-46); Hemoglobin 11.2 g/dL (12.0-16.0); Mean Corpuscular HGB Conc 34.2 % (30-36); Mean Corpuscular Hemoglobin 29.9 PG (26-34); Mean Corpuscular Volume 87.5 fL (80-100); Platelet Count 245 X10^3/uL (150-400); Red Blood Cell Count 3.74 X10^6/uL (4.0-5.2); White Blood Cell Count 8.3 X10^3/uL (4.5-11.0)
[2022-04-28 17:21] LABS: Alanine Aminotransferase 31 IU/L (<35); Albumin 4.8 g/dL (3.5-5.0); Albumin Globulin Ratio 1.7 (1.0-2.8); Alkaline Phosphatase 74 U/L (38-126); Aspartate Aminotransferase 39 IU/L (14-36); BUN Creatinine Ratio 14.5 (6-22); Bilirubin Total 0.5 mg/dL (0.2-1.3); Blood Urea Nitrogen 16 mg/dL (7-17); Calcium 9.2 mg/dL (8.4-10.2); Carbon Dioxide 26 mmol/L (22-32); Chloride 99 mmol/L (98-107); Cholesterol 161 mg/dL (140-199); Estimated Glomerular Filt Rate 49 mL/min (>60); Globulin 2.8 g/dL (1.7-4.1); Glucose 100 mg/dL (80-110); HDL Cholesterol 63 mg/dL (40-60); HEMOLYSIS < 15 (0-50); LDL Cholesterol Calculated 68 mg/dL (<100); Potassium 4.2 mmol/L (3.4-5.1); Sodium 137 mmol/L (137-145); Total Protein 7.6 g/dL (6.3-8.2); Triglycerides 152 mg/dL (35-150)
[2022-04-28 17:51] LABS: TSH w/ Reflex to FT4 0.88 uIU/mL (0.47-4.68)
== END ==
PROVIDERS: Family Provider Internal Medicine; PCP Internal Medicine; Referring Provider Internal Medicine; Visit Provider Internal Medicine
DX: D64.9 Anemia, unspecified (principal); E03.9 Hypothyroidism, unspecified; E78.2 Mixed hyperlipidemia; I10 Essential (primary) hypertension; N18.32 Chronic kidney disease, stage 3b
CPT/HCPCS: 36415; 80053; 80061; 84443; 85027

== ENCOUNTER → 2022-05-03 09:54 | Outpatient (CLI) | payer MEDICARE, OTHER, SELFPAY | PROVIDERS: Family Provider Internal Medicine; PCP Internal Medicine; Referring Provider Internal Medicine; Visit Provider Internal Medicine | DX: Z78.0 Asymptomatic menopausal state (principal) | CPT/HCPCS: 77080 ==

== ENCOUNTER → 2022-07-08 11:30 | Outpatient (CLI) | payer MEDICARE, OTHER, SELFPAY ==
[2022-07-08 13:21] LABS: Alanine Aminotransferase 34 IU/L (<35); Albumin 4.4 g/dL (3.5-5.0); Albumin Globulin Ratio 1.4 (1.0-2.8); Alkaline Phosphatase 69 U/L (38-126); Aspartate Aminotransferase 41 IU/L (14-36); Bilirubin Total 0.4 mg/dL (0.2-1.3); Blood Urea Nitrogen 15 mg/dL (7-17); Calcium 9.5 mg/dL (8.4-10.2); Carbon Dioxide 29 mmol/L (22-32); Chloride 100 mmol/L (98-107); Estimated Glomerular Filt Rate 46 mL/min (>60); Globulin 3.2 g/dL (1.7-4.1); Glucose 104 mg/dL (80-110); HEMOLYSIS < 15 (0-50); Potassium 3.8 mmol/L (3.4-5.1); Sodium 138 mmol/L (137-145); Total Protein 7.6 g/dL (6.3-8.2)
[2022-07-08 13:33] LABS: Free T3, Triiodothyronine Free 2.98 pg/mL (2.77-5.27); Free T4, Direct Thyroxine 1.07 ng/dL (0.78-2.19)
[2022-07-08 13:47] LABS: Thyroid Stimulating Hormone 0.356 uIU/mL (0.47-4.68)
[2022-07-08 15:26] LABS: Vitamin D 25 Hydroxy (D3) 48.4 ng/mL (30.0-100.0)
[2022-07-09 06:29] LABS: Parathyroid Hormone Int 9 pg/mL (15-65)
== END ==
PROVIDERS: Family Provider Internal Medicine; PCP Internal Medicine; Referring Provider Internal Medicine Endocrinology, Diabetes & Metabolism; Visit Provider Internal Medicine Endocrinology, Diabetes & Metabolism
DX: E20.8 Other hypoparathyroidism (principal); E03.8 Other specified hypothyroidism
CPT/HCPCS: 36415; 80053; 82306; 83970; 84439; 84443; 84481

== ENCOUNTER → 2023-05-04 10:51 | Outpatient (CLI) | payer MEDICARE, OTHER, SELFPAY ==
[2023-05-04 12:16] LABS: Hematocrit 31.9 % (36-46); Hemoglobin 10.8 g/dL (12.0-16.0); Mean Corpuscular HGB Conc 33.7 % (30-36); Mean Corpuscular Hemoglobin 30.1 PG (26-34); Mean Corpuscular Volume 89.1 fL (80-100); Platelet Count 222 X10^3/uL (150-400); Red Blood Cell Count 3.58 X10^6/uL (4.0-5.2); Red Cell Distribution Width 13.7 % (11.6-14.8); White Blood Cell Count 6.1 X10^3/uL (4.5-11.0)
[2023-05-04 12:35] LABS: Blood Urea Nitrogen 22 mg/dL (7-17); Calcium 9.5 mg/dL (8.4-10.2); Carbon Dioxide 28 mmol/L (22-32); Chloride 100 mmol/L (98-107); Cholesterol 228 mg/dL (140-199); Estimated Glomerular Filt Rate 48 mL/min (>60); Glucose 97 mg/dL (80-110); HDL Cholesterol 70 mg/dL (40-60); HEMOLYSIS < 15 (0-50); LDL Cholesterol Calculated 132 mg/dL (<100); Potassium 3.8 mmol/L (3.4-5.1); Sodium 137 mmol/L (137-145); Triglycerides 130 mg/dL (35-150)
[2023-05-04 13:01] LABS: TSH w/ Reflex to FT4 5.82 uIU/mL (0.47-4.68)
[2023-05-04 15:24] LABS: Free T4, Direct Thyroxine 1.01 ng/dL (0.78-2.19)
== END ==
PROVIDERS: Family Provider Internal Medicine; PCP Internal Medicine; Referring Provider Internal Medicine; Visit Provider Internal Medicine
DX: D64.9 Anemia, unspecified (principal); E03.9 Hypothyroidism, unspecified; E06.3 Autoimmune thyroiditis; E78.2 Mixed hyperlipidemia; I10 Essential (primary) hypertension; N18.32 Chronic kidney disease, stage 3b
CPT/HCPCS: 36415; 80048; 80061; 84439; 84443; 85027

== ENCOUNTER → 2023-05-11 12:55 | Outpatient (CLI) | payer MEDICARE, OTHER, SELFPAY ==
[2023-05-11 14:16] LABS: Free T3, Triiodothyronine Free 2.94 pg/mL (2.77-5.27); Free T4, Direct Thyroxine 0.78 ng/dL (0.78-2.19)
[2023-05-11 14:30] LABS: Thyroid Stimulating Hormone 6.22 uIU/mL (0.47-4.68)
== END ==
PROVIDERS: Family Provider Internal Medicine; PCP Internal Medicine; Referring Provider Internal Medicine Endocrinology, Diabetes & Metabolism; Visit Provider Internal Medicine Endocrinology, Diabetes & Metabolism
DX: E03.9 Hypothyroidism, unspecified (principal)
CPT/HCPCS: 36415; 84439; 84443; 84481

== ENCOUNTER → 2023-10-04 11:16 | Outpatient (CLI) | payer MEDICARE, OTHER, SELFPAY ==
[2023-10-04 12:45] LABS: BUN Creatinine Ratio 18.9 (6-22); Blood Urea Nitrogen 20 mg/dL (7-17); Calcium 9.9 mg/dL (8.4-10.2); Carbon Dioxide 30 mmol/L (22-32); Chloride 99 mmol/L (98-107); Estimated Glomerular Filt Rate 51 mL/min (>60); Glucose 97 mg/dL (80-110); HEMOLYSIS < 15 (0-50); Potassium 4.4 mmol/L (3.4-5.1); Sodium 136 mmol/L (137-145)
== END ==
PROVIDERS: Family Provider Internal Medicine; PCP Internal Medicine; Referring Provider Internal Medicine; Visit Provider Internal Medicine
DX: N18.32 Chronic kidney disease, stage 3b (principal); I10 Essential (primary) hypertension
CPT/HCPCS: 36415; 80048

== ENCOUNTER → 2023-10-09 13:37 | Outpatient (CLI) | payer MEDICARE, OTHER, SELFPAY ==
[2023-10-09 15:33] LABS: Free T3, Triiodothyronine Free 2.72 pg/mL (2.77-5.27)
[2023-10-09 15:46] LABS: Thyroid Stimulating Hormone 2.52 uIU/mL (0.47-4.68)
== END ==
PROVIDERS: Family Provider Internal Medicine; PCP Internal Medicine; Referring Provider Internal Medicine Endocrinology, Diabetes & Metabolism; Visit Provider Internal Medicine Endocrinology, Diabetes & Metabolism
DX: E03.9 Hypothyroidism, unspecified (principal)
CPT/HCPCS: 36415; 84439; 84443; 84481

== ENCOUNTER → 2024-06-21 16:28 | Outpatient (CLI) | payer MEDICARE, OTHER, SELFPAY ==
[2024-06-21 17:17] LABS: Add Manual Diff / Slide Review NO; Basophils Absolute Auto 100 /uL (0-100); Basophils Percent Auto 0.8 % (0-2); Eosinophils Absolute Auto 300 /uL (0-450); Eosinophils Percent Auto 3.1 % (2-4); Hematocrit 27.2 % (36-46); Hemoglobin 9.6 g/dL (12.0-16.0); Lymphocytes Absolute Auto 1700 /uL (1100-4500); Lymphocytes Percent Auto 20.6 % (25-40); Mean Corpuscular HGB Conc 35.3 % (30-36); Mean Corpuscular Hemoglobin 30.4 PG (26-34); Mean Corpuscular Volume 86.1 fL (80-100); Monocytes Absolute Auto 800 /uL (0-900); Monocytes Percent Auto 9.5 % (3-14); Neutrophils Absolute Auto 5500 /uL (1500-7000); Platelet Count 260 X10^3/uL (150-400); Red Blood Cell Count 3.16 X10^6/uL (4.0-5.2); Red Cell Distribution Width 14.4 % (11.6-14.8); White Blood Cell Count 8.3 X10^3/uL (4.5-11.0)
[2024-06-21 17:33] LABS: BUN Creatinine Ratio 18.3 (6-22); Blood Urea Nitrogen 35 mg/dL (7-17); Calcium 9.9 mg/dL (8.4-10.2); Carbon Dioxide 21 mmol/L (22-32); Chloride 104 mmol/L (98-107); Estimated Glomerular Filt Rate 25 mL/min (>60); Glucose 102 mg/dL (80-110); HEMOLYSIS < 15 (0-50); Potassium 3.5 mmol/L (3.4-5.1); Sodium 138 mmol/L (137-145)
== END ==
LOC: LAB 16:30
PROVIDERS: Family Provider Internal Medicine; PCP Internal Medicine; Referring Provider Nurse Practitioner; Visit Provider Nurse Practitioner
DX: C4A.71 Merkel cell carcinoma of right lower limb, including hip (principal)
CPT/HCPCS: 36415; 80048; 85025

== ENCOUNTER → 2024-06-22 11:43 | Outpatient (CLI) | payer MEDICARE, OTHER, SELFPAY ==
[2024-06-22 13:37] LABS: Appearance Urine UA CLEAR; Bilirubin Urine UA NEGATIVE (NEGATIVE); Color Urine UA YELLOW; Glucose Urine UA NEGATIVE (Negative); Ketones Urine UA NEGATIVE (NEGATIVE); Leukocyte Esterase Urine UA 1+ (NEGATIVE); Nitrite Urine UA NEGATIVE (Negative); Occult Blood Urine UA NEGATIVE (Negative); Protein Urine UA NEGATIVE (Negative); Specific Gravity Urine UA <=1.005 (1.000-1.035); Urobilinogen Urine UA 0.2 E.U./dL (0.2)
[2024-06-22 13:47] LABS: Bacteria Urine Occasional (0-1); Culture Indicated Urine Specimen Cultured; RBC Urine None Seen (0-5/HPF); Squamous Epithelial Cell Urine 5-10 /HPF (0-5/HPF); Transitional Epi Cells Urine 1-5/HPF (0-5/HPF); Urine Volume 10mL (spun); WBC Urine 5-10/HPF (0-5/HPF)
== END ==
PROVIDERS: Family Provider Internal Medicine; PCP Internal Medicine; Referring Provider Nurse Practitioner; Visit Provider Nurse Practitioner
DX: C4A.71 Merkel cell carcinoma of right lower limb, including hip (principal)
CPT/HCPCS: 81001; 87086

== ENCOUNTER → 2024-07-10 16:10 | Outpatient (CLI) | payer MEDICARE, OTHER, SELFPAY ==
[2024-07-10 17:48] LABS: Appearance Urine UA CLEAR; Bilirubin Urine UA NEGATIVE (NEGATIVE); Color Urine UA YELLOW; Glucose Urine UA NEGATIVE (Negative); Ketones Urine UA NEGATIVE (NEGATIVE); Leukocyte Esterase Urine UA 1+ (NEGATIVE); Nitrite Urine UA NEGATIVE (Negative); Occult Blood Urine UA NEGATIVE (Negative); Protein Urine UA NEGATIVE (Negative); Specific Gravity Urine UA <=1.005 (1.000-1.035); Urobilinogen Urine UA 0.2 E.U./dL (0.2)
[2024-07-10 17:56] LABS: pH Urine UA 5.5 (4.5-8.0)
[2024-07-10 18:13] LABS: BUN Creatinine Ratio 27.6 (6-22); Blood Urea Nitrogen 40 mg/dL (7-17); Calcium 8.6 mg/dL (8.4-10.2); Carbon Dioxide 13 mmol/L (22-32); Chloride 112 mmol/L (98-107); Estimated Glomerular Filt Rate 34 mL/min (>60); Glucose 135 mg/dL (80-110); HEMOLYSIS < 15 (0-50); Potassium 4.1 mmol/L (3.4-5.1); Sodium 135 mmol/L (137-145)
[2024-07-10 19:14] LABS: Bacteria Urine None Seen; RBC Urine None Seen (0-5/HPF); Urine Volume 10mL (spun); WBC Urine 1-5/HPF (0-5/HPF)
[2024-07-10 19:15] LABS: Culture Indicated Urine Specimen Cultured; Squamous Epithelial Cell Urine None Seen (0-5/HPF)
== END ==
LOC: LAB 16:15
PROVIDERS: Family Provider Internal Medicine; PCP Internal Medicine; Referring Provider Nurse Practitioner; Visit Provider Nurse Practitioner
DX: C7B.1 Secondary Merkel cell carcinoma (principal); C4A.71 Merkel cell carcinoma of right lower limb, including hip
CPT/HCPCS: 36415; 80048; 81001; 87086

== ENCOUNTER → 2024-07-18 15:02 | Outpatient (CLI) | payer MEDICARE, OTHER, SELFPAY ==
[2024-07-18 15:42] LABS: Appearance Urine UA CLEAR; Bilirubin Urine UA NEGATIVE (NEGATIVE); Color Urine UA YELLOW; Glucose Urine UA NEGATIVE (Negative); Ketones Urine UA NEGATIVE (NEGATIVE); Leukocyte Esterase Urine UA TRACE (NEGATIVE); Nitrite Urine UA NEGATIVE (Negative); Occult Blood Urine UA NEGATIVE (Negative); Protein Urine UA TRACE (Negative); Urobilinogen Urine UA 0.2 E.U./dL (0.2)
[2024-07-18 15:51] LABS: Blood Urea Nitrogen 35 mg/dL (7-17); Carbon Dioxide 10 mmol/L (22-32); Chloride 113 mmol/L (98-107); Estimated Glomerular Filt Rate 33 mL/min (>60); Glucose 166 mg/dL (80-110); HEMOLYSIS < 15 (0-50); Potassium 3.8 mmol/L (3.4-5.1); Sodium 135 mmol/L (137-145)
[2024-07-18 16:07] LABS: Bacteria Urine Few (2-10); Culture Indicated Urine Specimen Cultured; RBC Urine None Seen (0-5/HPF); Squamous Epithelial Cell Urine 0-1 /HPF (0-5/HPF); Urine Volume 10mL (spun); WBC Urine 0-1/HPF (0-5/HPF)
== END ==
LOC: LAB 15:05
PROVIDERS: Family Provider Internal Medicine; PCP Internal Medicine; Referring Provider Nurse Practitioner; Visit Provider Nurse Practitioner
DX: C7B.1 Secondary Merkel cell carcinoma (principal); C4A.71 Merkel cell carcinoma of right lower limb, including hip
CPT/HCPCS: 36415; 80048; 81001; 87086

== ENCOUNTER → 2024-08-12 15:45 | Outpatient (CLI) | payer MEDICARE, OTHER, SELFPAY ==
[2024-08-12 16:45] LABS: Appearance Urine UA CLEAR; Bilirubin Urine UA NEGATIVE (NEGATIVE); Color Urine UA YELLOW; Glucose Urine UA NEGATIVE (Negative); Ketones Urine UA NEGATIVE (NEGATIVE); Leukocyte Esterase Urine UA NEGATIVE (NEGATIVE); Nitrite Urine UA NEGATIVE (Negative); Occult Blood Urine UA NEGATIVE (Negative); Protein Urine UA NEGATIVE (Negative); Urobilinogen Urine UA 0.2 E.U./dL (0.2)
[2024-08-12 16:49] LABS: pH Urine UA 6.5 (4.5-8.0)
[2024-08-12 16:54] LABS: Bacteria Urine Occasional (0-1); Culture Indicated Urine Cult Not Indicated; RBC Urine 0-1/HPF (0-5/HPF); Squamous Epithelial Cell Urine 1-5 /HPF (0-5/HPF); Urine Volume 10mL (spun); WBC Urine 0-1/HPF (0-5/HPF)
[2024-08-12 17:44] LABS: Blood Urea Nitrogen 37 mg/dL (7-17); Calcium 9.7 mg/dL (8.4-10.2); Carbon Dioxide 21 mmol/L (22-32); Chloride 105 mmol/L (98-107); Estimated Glomerular Filt Rate 32 mL/min (>60); Glucose 128 mg/dL (80-110); HEMOLYSIS < 15 (0-50); Potassium 4.5 mmol/L (3.4-5.1); Sodium 136 mmol/L (137-145)
== END ==
PROVIDERS: Family Provider Internal Medicine; PCP Internal Medicine; Referring Provider Nurse Practitioner; Visit Provider Nurse Practitioner
DX: C7B.1 Secondary Merkel cell carcinoma (principal); C4A.71 Merkel cell carcinoma of right lower limb, including hip; E87.6 Hypokalemia
CPT/HCPCS: 80048; 81001

== ENCOUNTER → 2024-08-26 13:57 | Outpatient (CLI) | payer MEDICARE, OTHER, SELFPAY ==
[2024-08-26 15:08] LABS: Appearance Urine UA CLEAR; Bilirubin Urine UA NEGATIVE (NEGATIVE); Color Urine UA YELLOW; Glucose Urine UA NEGATIVE (Negative); Ketones Urine UA NEGATIVE (NEGATIVE); Leukocyte Esterase Urine UA 1+ (NEGATIVE); Nitrite Urine UA NEGATIVE (Negative); Occult Blood Urine UA NEGATIVE (Negative); Protein Urine UA NEGATIVE (Negative); Urobilinogen Urine UA 0.2 E.U./dL (0.2)
[2024-08-26 15:11] LABS: pH Urine UA 6.5 (4.5-8.0)
[2024-08-26 15:15] LABS: Bacteria Urine Few (2-10); Culture Indicated Urine Specimen Cultured; RBC Urine 0-1/HPF (0-5/HPF); Squamous Epithelial Cell Urine 10-30 /HPF (0-5/HPF); Urine Volume 10mL (spun); WBC Urine 1-5/HPF (0-5/HPF)
[2024-08-26 15:47] LABS: BUN Creatinine Ratio 18.6 (6-22); Blood Urea Nitrogen 24 mg/dL (7-17); Calcium 8.5 mg/dL (8.4-10.2); Carbon Dioxide 21 mmol/L (22-32); Chloride 105 mmol/L (98-107); Estimated Glomerular Filt Rate 40 mL/min (>60); Glucose 118 mg/dL (80-110); HEMOLYSIS < 15 (0-50); Potassium 3.3 mmol/L (3.4-5.1); Sodium 135 mmol/L (137-145)
== END ==
LOC: LAB 13:59
PROVIDERS: Family Provider Internal Medicine; PCP Internal Medicine; Referring Provider Nurse Practitioner; Visit Provider Nurse Practitioner
DX: C7B.1 Secondary Merkel cell carcinoma (principal); C4A.71 Merkel cell carcinoma of right lower limb, including hip
CPT/HCPCS: 36415; 80048; 81001; 87086

== ENCOUNTER → 2024-09-19 16:32 | Outpatient (CLI) | payer MEDICARE, OTHER, SELFPAY ==
[2024-09-19 17:37] LABS: Appearance Urine UA CLEAR; Bilirubin Urine UA NEGATIVE (NEGATIVE); Color Urine UA YELLOW; Glucose Urine UA NEGATIVE (Negative); Ketones Urine UA NEGATIVE (NEGATIVE); Leukocyte Esterase Urine UA 1+ (NEGATIVE); Nitrite Urine UA NEGATIVE (Negative); Occult Blood Urine UA NEGATIVE (Negative); Protein Urine UA NEGATIVE (Negative); Urobilinogen Urine UA 0.2 E.U./dL (0.2)
[2024-09-19 17:44] LABS: Bacteria Urine Occasional (0-1); RBC Urine None Seen (0-5/HPF); Squamous Epithelial Cell Urine 1-5 /HPF (0-5/HPF); Transitional Epi Cells Urine 0-1/HPF (0-5/HPF); Urine Volume 10mL (spun); WBC Urine 1-5/HPF (0-5/HPF)
[2024-09-19 17:58] LABS: BUN Creatinine Ratio 16.5 (6-22); Blood Urea Nitrogen 23 mg/dL (7-17); Calcium 9.3 mg/dL (8.4-10.2); Carbon Dioxide 23 mmol/L (22-32); Chloride 105 mmol/L (98-107); Estimated Glomerular Filt Rate 36 mL/min (>60); Glucose 117 mg/dL (80-110); HEMOLYSIS < 15 (0-50); Potassium 4.7 mmol/L (3.4-5.1); Sodium 135 mmol/L (137-145)
== END ==
LOC: LAB 16:35
PROVIDERS: Family Provider Internal Medicine; PCP Internal Medicine; Referring Provider Nurse Practitioner; Visit Provider Nurse Practitioner
DX: C4A.71 Merkel cell carcinoma of right lower limb, including hip (principal); N05.9 Unspecified nephritic syndrome with unspecified morphologic changes
CPT/HCPCS: 36415; 80048; 81001

== ENCOUNTER → 2024-10-17 13:21 | Outpatient (CLI) | payer MEDICARE, OTHER, SELFPAY ==
[2024-10-17 14:28] LABS: Appearance Urine UA CLEAR; Bilirubin Urine UA NEGATIVE (NEGATIVE); Color Urine UA YELLOW; Glucose Urine UA NEGATIVE (Negative); Ketones Urine UA NEGATIVE (NEGATIVE); Leukocyte Esterase Urine UA TRACE (NEGATIVE); Nitrite Urine UA NEGATIVE (Negative); Occult Blood Urine UA NEGATIVE (Negative); Protein Urine UA NEGATIVE (Negative); Urobilinogen Urine UA 0.2 E.U./dL (0.2)
[2024-10-17 14:29] LABS: BUN Creatinine Ratio 16.4 (6-22); Blood Urea Nitrogen 25 mg/dL (7-17); Calcium 9.9 mg/dL (8.4-10.2); Carbon Dioxide 21 mmol/L (22-32); Chloride 107 mmol/L (98-107); Estimated Glomerular Filt Rate 33 mL/min (>60); Glucose 104 mg/dL (80-110); HEMOLYSIS < 15 (0-50); Potassium 4.1 mmol/L (3.4-5.1); Sodium 137 mmol/L (137-145); pH Urine UA 6.5 (4.5-8.0)
[2024-10-17 14:49] LABS: Bacteria Urine None Seen; Culture Indicated Urine Cult Not Indicated; RBC Urine None Seen (0-5/HPF); Squamous Epithelial Cell Urine 0-1 /HPF (0-5/HPF); Urine Volume 10mL (spun); WBC Urine 0-1/HPF (0-5/HPF)
== END ==
LOC: LAB 13:23
PROVIDERS: Family Provider Internal Medicine; PCP Internal Medicine; Referring Provider Nurse Practitioner; Visit Provider Nurse Practitioner
DX: C4A.71 Merkel cell carcinoma of right lower limb, including hip (principal)
CPT/HCPCS: 36415; 80048; 81001

== ENCOUNTER → 2024-11-04 14:30 | Outpatient (CLI) | payer MEDICARE, OTHER, SELFPAY ==
[2024-11-04 15:10] LABS: Appearance Urine UA CLEAR; Bilirubin Urine UA NEGATIVE (NEGATIVE); Color Urine UA YELLOW; Glucose Urine UA NEGATIVE (Negative); Ketones Urine UA NEGATIVE (NEGATIVE); Leukocyte Esterase Urine UA 1+ (NEGATIVE); Nitrite Urine UA NEGATIVE (Negative); Occult Blood Urine UA NEGATIVE (Negative); Protein Urine UA NEGATIVE (Negative); Urobilinogen Urine UA 0.2 E.U./dL (0.2)
[2024-11-04 15:18] LABS: Bacteria Urine Few (2-10); RBC Urine None Seen (0-5/HPF); Squamous Epithelial Cell Urine 5-10 /HPF (0-5/HPF); Urine Volume 10mL (spun); WBC Urine 5-10/HPF (0-5/HPF)
[2024-11-04 15:19] LABS: Culture Indicated Urine Specimen Cultured
[2024-11-04 15:46] LABS: BUN Creatinine Ratio 21.1 (6-22); Blood Urea Nitrogen 32 mg/dL (7-17); Calcium 9.7 mg/dL (8.4-10.2); Carbon Dioxide 20 mmol/L (22-32); Chloride 108 mmol/L (98-107); Estimated Glomerular Filt Rate 33 mL/min (>60); Glucose 111 mg/dL (80-110); HEMOLYSIS < 15 (0-50); Potassium 4.2 mmol/L (3.4-5.1); Sodium 136 mmol/L (137-145)
== END ==
LOC: LAB 14:32
PROVIDERS: Family Provider Internal Medicine; PCP Internal Medicine; Referring Provider Nurse Practitioner; Visit Provider Nurse Practitioner
DX: N05.9 Unspecified nephritic syndrome with unspecified morphologic changes (principal); C4A.71 Merkel cell carcinoma of right lower limb, including hip
CPT/HCPCS: 36415; 80048; 81001; 87086